=== PATIENT | male | born 1960 | race Two or more races ===

== ENCOUNTER 2018-04-08 17:07 | Emergency (ER) | payer MEDICAID, OTHER ==
[~2018-04-08] VITALS: Ht 182.9 cm; Wt 104.8 kg
[2018-04-08 17:12] VITALS: BP 153/96
[2018-04-08] MEDS ORDERED: ONDANSETRON 4 MG TAB.RAPDIS ONE (18:24)
--- NOTE | 2018-04-08 18:26 | NUR ---
PER DR. RAVI PRECIADO TO GIVE ZOFRAN ODT 4MG.
[2018-04-08] MEDS ORDERED: ONDANSETRON 4 MG TAB.RAPDIS SL ONE (18:30)
== END 2018-04-08 18:40 | disposition home or self-care (01) ==
LOC: ER 17:09
DX: S13.9XXA Sprain of joints and ligaments of unspecified parts of neck, initial encounter (principal); I10 Essential (primary) hypertension; R60.0 Localized edema; V49.49XA Driver injured in collision with other motor vehicles in traffic accident, initial encounter; Y93.89 Activity, other specified; Y92.411 Interstate highway as the place of occurrence of the external cause; Y99.8 Other external cause status
CPT/HCPCS: 72125; 99284; A4606; Q0162; Z7610